=== PATIENT | male | born 1990 | race Caucasian/White ===

== ENCOUNTER 2016-06-21 22:36 | Emergency (ER) | payer BC ==
[2016-06-21] MEDS ORDERED: ONDANSETRON HCL/PF 2 MG/ML VIAL IV ONE (23:04)
--- OUTSIDE RECORDS SUMMARY | 2016-06-21 23:08 | XMS REPORT | Summary of Care ---
:[address] [facility] Address [address] [place] [address] Care Team Providers Name Role Phone Nasra Araiza Primary Care Physician Encounter Date(s): 06/06/16 - 06/06/16 [facility] [address] [place] [address] [facility] Discharge Diagnosis: Hyperglycemia Discharge Diagnosis: Hypothyroidism Discharge Diagnosis: Constipation Discharge Diagnosis: Abnormal weight gain Discharge Diagnosis: HTN - Hypertension Discharge Diagnosis: Nonulcer dyspepsia Discharge Disposition: 01 Discharged to Home or Self Care Attending Physician: Nasra Araiza DO Referring Physician: Nasra Araiza DO Vital Signs Most recent to oldest [Reference Range]: 1 Temperature Tympanic [36.6-38.1 DegC] 36.8 DegC (06/06/16 9:24 AM) Temperature C to F 98.2 (06/06/16 9:24 AM) Peripheral Pulse Rate [60-100 bpm] 95 bpm (06/06/16 9:24 AM) SpO2 96 % (06/06/16 9:24 AM) SpO2 Location Left hand (06/06/16 9:24 AM) Blood Pressure [90-130/60-90 mmHg] 152/80mmHg *HI* (06/06/16 9:24 AM) Mean Arterial Pressure, Cuff 104 mmHg (06/06/16 9:24 AM) Height/Length Measured 183 cm (06/06/16 9:24 AM) Weight Dosing 155.1 kg (06/06/16 9:24 AM) Weight Measured 155.1 kg (06/06/16 9:24 AM) BSA Measured 2.68 m2 (06/06/16 9:24 AM) Body Mass Index Measured 46.31 kg/m2 (06/06/16 9:24 AM) Problem List Condition Effective Dates Status Health Status Informant HTN - Hypertension(Confirmed) Active Hypothyroidism(Confirmed) Active Mood swings(Confirmed) Active Allergies, Adverse Reactions, Alerts No Known Medication Allergies Medications albuterol CFC free 90 mcg/inh inhalation aerosol 2 puff(s), Inhale, q4hr, PRN for wheezing, # 18 gm, 0 Refill(s), Start Date: 05/23 14:48:00 [employer], [facility]acy: [facility] [place] [place] Start Date: 06/08/15 Stop Date: 07/03/15 Status: Completedalbuterol CFC free 90 mcg/inh inhalation aerosol 2 puff(s), Inhale, q4hr, PRN for wheezing, # 18 gm, 0 Refill(s), Start Date: 11:34:07 [employer], Pharmacy: [facility] [place] [place] Start Date: 07/03/15 Status: Orderedbenztropine 1 mg oral tablet 1 tab(s), Oral, BID, 0 Refill(s), Start Date: 07/24/15 11:00:00 CDT Start Date: 07/24/15 Stop Date: 07/24/15 Status: DiscontinuedclonazePAM 0.5 mg oral tablet 1 tab(s), Oral, q8hr, 0 Refill(s), Start Date: 03/24/15 15:32:00 [employer] Start Date: 03/24/15 Stop Date: 03/31/15 Status: CompletedCozaar 100 mg oral tablet 1 tab(s), Oral, Daily, # 90 tab(s), 1 Refill(s), Start Date: 12/04/14 9:15:28 CDT, Pharmacy: [facility] Start Date: 12/04/14 Stop Date: 04/16/15 Status: CompletedCozaar 100 mg oral tablet 1 tab(s), Oral, Daily, # 90 tab(s), 1 Refill(s), Start Date: 04/16/15 15:02:39 [employer], Pharmacy: [facility] [place] [place] Start Date: 04/16/15 Stop Date: 07/22/15 Status: CompletedCozaar 100 mg oral tablet 1 tab(s), Oral, Daily, # 30 tab(s), 0 Refill(s), Start Date: 09/18/14 10:55:00 CDT, Pharmacy: [place], [place] Start Date: 09/18/14 Stop Date: 10/16/14 Status: CompletedCozaar 100 mg oral tablet 1 tab(s), Oral, Daily, # 30 tab(s), 5 Refill(s), Start Date: 10/16/14 16:04:42 CDT, Pharmacy: [place], [place] Start Date: 10/16/14 Stop Date: 12/04/14 Status: CompletedLaMICtal 100 mg oral tablet See Instructions, 0.5 tablet QAM 1 tablet QPM; Dr. León, psychiatrist in [place], # 60 tab(s), 0 Refill(s), Start Date: 06/08/15 14:45:00 [employer], other reason (Rx) Start Date: 06/08/15 Stop Date: 07/24/15 Status: CompletedlamoTRIgine 100 mg oral tablet 1 tab(s), Oral, BID, 0 Refill(s), Start Date: 07/24/15 11:01:00 CDT Start Date: 07/24/15 Stop Date: 07/24/15 Status: DiscontinuedLORazepam 0.5 mg oral tablet 1-2 tab(s), Oral, BID, PRN as needed for anxiety, Dr. León, psychiatrist in [place], 0 Refill(s), Start Date: 07/01/15 9:32:00 [employer] Start Date: 07/01/15 Stop Date: 07/24/15 Status: DiscontinuedLORazepam 1 mg oral tablet 1 tab(s), Oral, BID, PRN anxiety, # 60 tab(s), 2 Refill(s), Start Date: 12:03:00 CDT, Pharmacy: [place], [place] Start Date: 07/24/15 Stop Date: 11/25/15 Status: Completedlosartan 100 mg, Oral, Daily, 0 Refill(s), Start Date: 11/25/15 8:56:00 CDT Start Date: 11/25/15 Stop Date: 11/25/15 Status: Completedlosartan 100 mg oral tablet 1 tab(s), Oral, Daily, # 90 tab(s), 0 Refill(s), Start Date: 01/12/16 9:06:37 CDT, Pharmacy: [facility] [place] [place] Start Date: 01/12/16 Status: Orderedlosartan 100 mg oral tablet 1 tab(s), Oral, Daily, # 90 tab(s), 0 Refill(s), Start Date: 12/07/15 16:54:00 CDT, [facility] [place] [place] Start Date: 12/07/15 Stop Date: 01/12/16 Status: Completedlosartan 100 mg oral tablet 1 tab(s), Oral, Daily, Start Date: 11/25/15 11:12:00 CDT Start Date: 11/25/15 Stop Date: 02/01/16 Status: Completedlosartan-hydrochlorothiazide 100 mg-25 mg oral tablet 1 tab(s), Oral, Daily, # 30 tab(s), 0 Refill(s), Start Date: 06/22/15 16:10:00 [employer], [facility]: [facility] [place] [place] Start Date: 06/22/15 Stop Date: 07/14/15 Status: Discontinuedlosartan-hydrochlorothiazide 100 mg-25 mg oral tablet 1 tab(s), Oral, Daily, # 90 tab(s), 1 Refill(s), Start Date: 07/22/15 10:41:10 CDT, Pharmacy: [facility] [place] [place] Start Date: 07/22/15 Stop Date: 11/25/15 Status: Completedlosartan-hydrochlorothiazide 100 mg-25 mg oral tablet 1 tab(s), Oral, Daily, # 30 tab(s), 0 Refill(s), Start Date: 06/22/15 16:09:00 [employer] Start Date: 06/22/15 Stop Date: 06/22/15 Status: DiscontinuedOLANZapine 5 mg oral tablet 1 tab(s), Oral, Daily, # 30 tab(s), 0 Refill(s), Start Date: 03/20/15 15:08:00 [employer], [place] Start Date: 03/20/15 Stop Date: 03/31/15 Status: CompletedPrevacid 30 mg oral delayed release capsule 1 cap(s), Oral, Daily, # 30 cap(s), 1 Refill(s), Start Date: 09/25/14 10:39:00 CDT, Pharmacy: [place] Start Date: 09/25/14 Stop Date: 12/04/14 Status: CompletedPrevacid 30 mg oral delayed release capsule 1 cap(s), Oral, Daily, # 90 cap(s), 1 Refill(s), Start Date: 12/04/14 9:13:40 CDT, Pharmacy: [facility] Start Date: 12/04/14 Stop Date: 01/09/15 Status: CompletedProtonix 40 mg oral delayed release tablet 1 tab(s), Oral, Daily, # 90 tab(s), 0 Refill(s), Start Date: 01/12/16 8:43:30 CDT, [place] Start Date: 01/12/16 Status: OrderedProtonix 40 mg oral delayed release tablet 1 tab(s), Oral, Daily, # 90 tab(s), 1 Refill(s), Start Date: 05/26/15 13:52:05 [employer], [facility] [place] Start Date: 05/26/15 Stop Date: 01/12/16 Status: CompletedProtonix 40 mg oral delayed release tablet 1 tab(s), Oral, Daily, # 90 tab(s), 3 Refill(s), Start Date: 01/09/15 14:13:00 CDT, Pharmacy: [facility] Start Date: 01/09/15 Stop Date: 05/26/15 Status: CompletedRisperDAL 1 mg oral tablet See Instructions, 2 in am, [address] león, # 1 QS, 0 Refill(s), Start Date: 03/31/15 16:22:00 [employer], other reason (Rx) Start Date: 03/31/15 Stop Date: 07/24/15 Status: Discontinuedsertraline 100 mg oral tablet 1 tab(s), Oral, Daily, Dr León, # 30 tab(s), 0 Refill(s), Start Date: 06/08 14:45:00 [employer], other reason (Rx) Start Date: 06/08/15 Stop Date: 07/24/15 Status: Discontinuedsertraline 100 mg oral tablet 1.5 tab(s), Oral, Daily, # 45 tab(s), 2 Refill(s), Start Date: 07/24/15 12:03: 16 CDT, Pharmacy: [place], [place] Start Date: 07/24/15 Stop Date: 12/03/15 Status: DiscontinuedSuprep Bowel Prep Kit oral liquid 1 kit(s), Oral, ONETIME, # 1 kit(s), 0 Refill(s), Start Date: 12/11/15 15:48:00 CDT, Pharmacy: [place], [place] Start Date: 12/11/15 Stop Date: 02/03/16 Status: CompletedSynthroid 25 mcg (0.025 mg) oral tablet 1 tab(s), Oral, Daily, # 30 tab(s), 2 Refill(s), Start Date: 03/31/15 16:26:00 [employer], Pharmacy: [place], [place] Start Date: 03/31/15 Stop Date: 07/09/15 Status: CompletedSynthroid 50 mcg (0.05 mg) oral tablet 1 tab(s), Oral, Daily, 1 tablet daily; recheck TSH in 3 months., # 90 tab(s), 0 Refill(s), Start Date: 07/09/15 10:06:00 [employer], Pharmacy: [place], [place] Start Date: 07/09/15 Status: OrderedtraMADol 50 mg oral tablet 1 tab(s), Oral, q4hr, PRN for pain, # 10 tab(s), 0 Refill(s), Start Date: 14:16:00 CDT Start Date: 11/25/15 Stop Date: 12/03/15 Status: DiscontinuedtraZODone 50 mg oral tablet 0.5 - 3 tabs, Oral, HS, PRN sleep, # 60 tab(s), 2 Refill(s), Start Date: 12:04:00 CDT, [facility]acy: [facility] [place] [place] Start Date: 07/24/15 Stop Date: 11/25/15 Status: Completedvenlafaxine 37.5 mg oral capsule, extended release 1 cap(s), Oral, Daily, # 30 cap(s), 0 Refill(s), Start Date: 03/31/15 16:25:00 [employer], other reason (Rx) Start Date: 03/31/15 Stop Date: 06/08/15 Status: DiscontinuedZofran 4 mg oral tablet 1 tab(s), Oral, TID, # 9 tab(s), 0 Refill(s), Start Date: 02/03/16 10:07:00 CDT , Pharmacy: [facility] [place] [place] Start Date: 02/03/16 Stop Date: 06/06/16 Status: CompletedZoloft 100 mg oral tablet 1 tab(s), Oral, Daily, # 30 tab(s), 1 Refill(s), Start Date: 02/06/15 15:37:00 CDT, Pharmacy: [facility] [place] [place] Start Date: 02/06/15 Stop Date: 02/11/15 Status: CompletedZoloft 100 mg oral tablet 1 tab(s), Oral, Daily, # 30 tab(s), 1 Refill(s), Start Date: 02/11/15 11:26:36 CDT, Pharmacy: [facility] [place] Start Date: 02/11/15 Stop Date: 03/31/15 Status: CompletedZoloft 50 mg oral tablet 1 tab(s), Oral, Daily, # 30 tab(s), 0 Refill(s), Start Date: 01/09/15 14:13:00 CDT, Pharmacy: [facility] [place] [place] Start Date: 01/09/15 Stop Date: 02/06/15 Status: CompletedZyrTEC 10 mg oral tablet 1 tab(s), Oral, Daily, # 30 tab(s), 2 Refill(s), Start Date: 01/09/15 14:14:00 CDT, Pharmacy: [place], [place] Start Date: 01/09/15 Stop Date: 07/14/15 Status: DiscontinuedZyrTEC 10 mg oral tablet 1 tab(s), Oral, Daily, # 30 tab(s), 5 Refill(s), Start Date: 07/14/15 9:07:11 [employer], Pharmacy: [place] Start Date: 07/14/15 Status: Ordered Results Patient Viewable Results Most recent to oldest [Reference Range]: 1 Sodium Lvl [136-145 mmol/L] 142 mmol/L (06/06/16 10:03 AM) Potassium Lvl [3.5-5.1 mmol/L] 4.3 mmol/L (06/06/16 10:03 AM) Chloride Lvl [98-107 mmol/L] 105 mmol/L (06/06/16 10:03 AM) Bicarbonate Lvl [21-32 mmol/L] 26 mmol/L (06/06/16 10:03 AM) Anion Gap [12-19] 15 (06/06/16 10:03 AM) Glucose Lvl [74-106 mg/dL] 97 mg/dL (06/06/16 10:03 AM) BUN [7-18 mg/dL] 13 mg/dL (06/06/16 10:03 AM) Creatinine Lvl [0.70-1.30 mg/dL] 0.90 mg/dL (06/06/16 10:03 AM) BUN/Creat Ratio 14 *NA* (06/06/16 10:03 AM) eGFR AA [>=60] >60 (06/06/16 10:03 AM) eGFR AME [>=60] >60 (06/06/16 10:03 AM) Calcium Lvl [8.5-10.1 mg/dL] 9.2 mg/dL (06/06/16 10:03 AM) Total Protein [6.4-8.2 g/dL] 7.3 g/dL (06/06/16 10:03 AM) Albumin Lvl [3.4-5.0 g/dL] 3.8 g/dL (06/06/16 10:03 AM) Globulin 4 g/dL *NA* (06/06/16 10:03 AM) A/G Ratio [1.0-2.0] 1.1 (06/06/16 10:03 AM) Bilirubin Total [0.2-1.0 mg/dL] 0.4 mg/dL (06/06/16 10:03 AM) Alkaline Phosphatase [46-116 unit/L] 117 unit/L *HI* (06/06/16 10:03 AM) AST [15-37 unit/L] 14 unit/L *LOW* (06/06/16 10:03 AM) ALT [16-63 unit/L] 34 unit/L (06/06/16 10:03 AM) Glycated Hemoglobin [4.5-6.2 %] 5.5 % (06/06/16 10:03 AM) Estimated Average Glucose [64-120 mg/dL] 97 mg/dL (06/06/16 10:03 AM) Cholesterol Total [0-200 mg/dL] 139 mg/dL (06/06/16 10:03 AM) Triglyceride [0-200 mg/dL] 80 mg/dL (06/06/16 10:03 AM) HDL Cholesterol [40-60 mg/dL] 37 mg/dL *LOW* (06/06/16 10:03 AM) LDL Cholesterol (Direct) [0-130 mg/dL] 86 mg/dL (06/06/16 10:03 AM) Non HDL Cholesterol [0-160 mg/dL] 102 mg/dL (06/06/16 10:03 AM) TSH [0.36-3.74 mIU/L] 1.84 mIU/L (06/06/16 10:03 AM) Immunizations No data available for this section Procedures Procedure Date Related Diagnosis Body Site Esophagogastroduodenoscopy1 02/03/16 Tonsillectomy Uvulectomy 1auto-populated from documented surgical case Social History No data available for this section Assessment and Plan No data available for this section
--- OUTSIDE RECORDS SUMMARY | 2016-06-21 23:09 | XMS REPORT | Summary of Care ---
:1990 Author Organization [facility] Address [address] [place] [id number] Care Team Providers Name Role Phone Nasra Araiza Primary Care Physician Encounter Date(s): 10/15/15 - 10/15/[address] [address] [facility] Discharge Disposition: 01 Discharged to Home or Self Care Referring Physician: Nasra Araiza, DO Vital Signs No data available for this section Problem List Condition Effective Dates Status Health Status Informant HTN - Hypertension(Confirmed) Active Hypothyroidism(Confirmed) Active Mood swings(Confirmed) Active Allergies, Adverse Reactions, Alerts No Known Medication Allergies Medications albuterol CFC free 90 mcg/inh inhalation aerosol 2 puff(s), Inhale, q4hr, PRN for wheezing, # 18 gm, 0 Refill(s), Start Date: 05/23 14:48:00 [employer], Pharmacy: [place], [place] Start Date: 06/08/15 Stop Date: 07/03/15 Status: Completedalbuterol CFC free 90 mcg/inh inhalation aerosol 2 puff(s), Inhale, q4hr, PRN for wheezing, # 18 gm, 0 Refill(s), Start Date: 11:34:07 [employer], Pharmacy: [place], [place] Start Date: 07/03/15 Status: Orderedbenztropine 1 mg oral tablet 1 tab(s), Oral, BID, 0 Refill(s), Start Date: 07/24/15 11:00:00 CDT Start Date: 07/24/15 Stop Date: 07/24/15 Status: DiscontinuedclonazePAM 0.5 mg oral tablet 1 tab(s), Oral, q8hr, 0 Refill(s), Start Date: 03/24/15 15:32:00 [employer] Start Date: 03/24/15 Stop Date: 03/31/15 Status: CompletedCozaar 100 mg oral tablet 1 tab(s), Oral, Daily, # 90 tab(s), 1 Refill(s), Start Date: 12/04/14 9:15:28 CDT, Pharmacy: [facility] Start Date: 12/04/14 Stop Date: 04/16/15 Status: CompletedCozaar 100 mg oral tablet 1 tab(s), Oral, Daily, # 90 tab(s), 1 Refill(s), Start Date: 04/16/15 15:02:39 [employer], Pharmacy: [facility] [place] [place] Start Date: 04/16/15 Stop Date: 07/22/15 Status: CompletedCozaar 100 mg oral tablet 1 tab(s), Oral, Daily, # 30 tab(s), 0 Refill(s), Start Date: 09/18/14 10:55:00 CDT, Pharmacy: [place], [place] Start Date: 09/18/14 Stop Date: 10/16/14 Status: CompletedCozaar 100 mg oral tablet 1 tab(s), Oral, Daily, # 30 tab(s), 5 Refill(s), Start Date: 10/16/14 16:04:42 CDT, [facility] [place] Start Date: 10/16/14 Stop Date: 12/04/14 Status: CompletedLaMICtal 100 mg oral tablet See Instructions, 0.5 tablet QAM 1 tablet QPM; Dr. León, psychiatrist in [place], # 60 tab(s), 0 Refill(s), Start Date: 06/08/15 14:45:00 [employer], other reason (Rx) Special Instructions: 0.5 tablet QAM 1 tablet QPM; Dr. León, psychiatrist in [place] Start Date: 06/08/15 Stop Date: 07/24/15 Status: CompletedlamoTRIgine 100 mg oral tablet 1 tab(s), Oral, BID, 0 Refill(s), Start Date: 07/24/15 11:01:00 CDT Start Date: 07/24/15 Stop Date: 07/24/15 Status: DiscontinuedLORazepam 0.5 mg oral tablet 1-2 tab(s), Oral, BID, PRN as needed for anxiety, Dr. León, psychiatrist in [place], 0 Refill(s), Start Date: 07/01/15 9:32:00 [employer] Special Instructions: Dr. León, psychiatrist in [place] Start Date: 07/01/15 Stop Date: 07/24/15 Status: DiscontinuedLORazepam 1 mg oral tablet 1 tab(s), Oral, BID, PRN anxiety, # 60 tab(s), 2 Refill(s), Start Date: 12:03:00 CDT, Pharmacy: [facility] [place] [place] Start Date: 07/24/15 Status: Orderedlosartan-hydrochlorothiazide 100 mg-25 mg oral tablet 1 tab(s), Oral, Daily, # 30 tab(s), 0 Refill(s), Start Date: 06/22/15 16:10:00 [employer], Pharmacy: [facility] [place] Start Date: 06/22/15 Stop Date: 07/14/15 Status: Discontinuedlosartan-hydrochlorothiazide 100 mg-25 mg oral tablet 1 tab(s), Oral, Daily, # 90 tab(s), 1 Refill(s), Start Date: 07/22/15 10:41:10 CDT, Pharmacy: [facility] [place] [place] Start Date: 07/22/15 Status: Orderedlosartan-hydrochlorothiazide 100 mg-25 mg oral tablet 1 tab(s), Oral, Daily, # 30 tab(s), 0 Refill(s), Start Date: 06/22/15 16:09:00 [employer] Start Date: 06/22/15 Stop Date: 06/22/15 Status: DiscontinuedOLANZapine 5 mg oral tablet 1 tab(s), Oral, Daily, # 30 tab(s), 0 Refill(s), Start Date: 03/20/15 15:08:00 [employer], [facility] [place] Start Date: 03/20/15 Stop Date: 03/31/15 Status: CompletedPrevacid 30 mg oral delayed release capsule 1 cap(s), Oral, Daily, # 30 cap(s), 1 Refill(s), Start Date: 09/25/14 10:39:00 CDT, Pharmacy: [place], [place] Start Date: 09/25/14 Stop Date: 12/04/14 Status: CompletedPrevacid 30 mg oral delayed release capsule 1 cap(s), Oral, Daily, # 90 cap(s), 1 Refill(s), Start Date: 12/04/14 9:13:40 CDT, Pharmacy: [facility] Start Date: 12/04/14 Stop Date: 01/09/15 Status: CompletedProtonix 40 mg oral delayed release tablet 1 tab(s), Oral, Daily, # 90 tab(s), 1 Refill(s), Start Date: 05/26/15 13:52:05 [employer], Pharmacy[place] Start Date: 05/26/15 Status: OrderedProtonix 40 mg oral delayed release tablet 1 tab(s), Oral, Daily, # 90 tab(s), 3 Refill(s), Start Date: 01/09/15 14:13:00 CDT, Pharmacy: [facility] Start Date: 01/09/15 Stop Date: 05/26/15 Status: CompletedRisperDAL 1 mg oral tablet See Instructions, 2 in am, [address] león, # 1 QS, 0 Refill(s), Start Date: 03/31/15 16:22:00 [employer], other reason (Rx) Special Instructions: 2 in am, [address] león Start Date: 03/31/15 Stop Date: 07/24/15 Status: Discontinuedsertraline 100 mg oral tablet 1 tab(s), Oral, Daily, Dr León, # 30 tab(s), 0 Refill(s), Start Date: 06/08 14:45:00 [employer], other reason (Rx) Special Instructions: Dr León Start Date: 06/08/15 Stop Date: 07/24/15 Status: Discontinuedsertraline 100 mg oral tablet 1.5 tab(s), Oral, Daily, # 45 tab(s), 2 Refill(s), Start Date: 07/24/15 12:03: 16 CDT, [facility] [place] Start Date: 07/24/15 Status: OrderedSynthroid 25 mcg (0.025 mg) oral tablet 1 tab(s), Oral, Daily, # 30 tab(s), 2 Refill(s), Start Date: 03/31/15 16:26:00 [employer], Pharmacy: [place], [place] Start Date: 03/31/15 Stop Date: 07/09/15 Status: CompletedSynthroid 50 mcg (0.05 mg) oral tablet 1 tab(s), Oral, Daily, 1 tablet daily; recheck TSH in 3 months., # 90 tab(s), 0 Refill(s), Start Date: 07/09/15 10:06:00 [employer], Pharmacy: [place], [place] Special Instructions: 1 tablet daily; recheck TSH in 3 months. Start Date: 07/09/15 Status: OrderedtraZODone 50 mg oral tablet 0.5 - 3 tabs, Oral, HS, PRN sleep, # 60 tab(s), 2 Refill(s), Start Date: 12:04:00 CDT, Pharmacy: [place], [place] Start Date: 07/24/15 Status: Orderedvenlafaxine 37.5 mg oral capsule, extended release 1 cap(s), Oral, Daily, # 30 cap(s), 0 Refill(s), Start Date: 03/31/15 16:25:00 [employer], other reason (Rx) Start Date: 03/31/15 Stop Date: 06/08/15 Status: DiscontinuedZoloft 100 mg oral tablet 1 tab(s), Oral, Daily, # 30 tab(s), 1 Refill(s), Start Date: 02/06/15 15:37:00 CDT, [facility] [place] Start Date: 02/06/15 Stop Date: 02/11/15 Status: CompletedZoloft 100 mg oral tablet 1 tab(s), Oral, Daily, # 30 tab(s), 1 Refill(s), Start Date: 02/11/15 11:26:36 CDT, Pharmacy: [facility] [place] [place] Start Date: 02/11/15 Stop Date: 03/31/15 Status: CompletedZoloft 50 mg oral tablet 1 tab(s), Oral, Daily, # 30 tab(s), 0 Refill(s), Start Date: 01/09/15 14:13:00 CDT, Pharmacy: [facility] [place] Start Date: 01/09/15 Stop Date: 02/06/15 Status: CompletedZyrTEC 10 mg oral tablet 1 tab(s), Oral, Daily, # 30 tab(s), 2 Refill(s), Start Date: 01/09/15 14:14:00 CDT, Pharmacy: [facility] [place] Start Date: 01/09/15 Stop Date: 07/14/15 Status: DiscontinuedZyrTEC 10 mg oral tablet 1 tab(s), Oral, Daily, # 30 tab(s), 5 Refill(s), Start Date: 07/14/15 9:07:11 [employer], Pharmacy: [facility] [place] [place] Start Date: 07/14/15 Status: Ordered Results No data available for this section Immunizations No data available for this section Procedures Procedure Date Related Diagnosis Body Site Tonsillectomy Uvulectomy Social History No data available for this section Assessment and Plan No data available for this section
[2016-06-21] MEDS ORDERED: ONDANSETRON HCL/PF 2 MG/ML VIAL ONE (23:14)
--- NOTE | 2016-06-21 23:20 | ERNOTE ---
Medical Problem HPI - General Chief Complaint: General Assessment Time Seen by Provider: 06/21/16 22:52 Source: patient Exam Limitations: no limitations - Immun/Allergies/Home Medications Immunizations: IMMUNIZATION HX Immunizations Up to Date Yes History of Influenza Vaccine No Hx Pneumococcal Vaccination No Allergies/Adverse Reactions: Allergies No Known Allergies Allergy (Verified 04/30/15 07:44) Home Medications: HOME MEDICATIONS Losartan Potassium [Cozaar] 100 mg PO DAILY 01/05/15 [Last Taken 01/05/15 08:00 100mg] Levothyroxine Sodium [Synthroid] 25 mcg PO DAILY 04/23/15 [Last Taken Unknown] Pantoprazole Sodium [Protonix] 40 mg PO DAILY 04/23/15 [Last Taken Unknown] Cetirizine HCl [Zyrtec] 10 mg PO DAILY PRN 04/30/15 [Last Taken Unknown] Ondansetron HCl [Zofran] 1 - 2 mg PO Q8H PRN #10 tab 06/22/16 [Last Taken Unknown] - History of Present History Narrative: Pt states he had onset of nausea and vomiting 2 days ago. tonight he had red blood in the stool this concerned him Timing: constant Severity: moderate Modifying Factors - (Worsens): Present: eating Review of Systems - Review of Systems Constitutional: Present: recent illness, fatigue. Absent: fever, chills EYE: Present: no symptoms reported ENT: Present: no symptoms reported Respiratory: Present: no symptoms reported Cardiology: Present: no symptoms reported Gastrointestinal/Abdominal: Present: See HPI, nausea, vomiting, diarrhea, abdominal pain - "soreness" Genitourinary: Present: decreased urinary output Musculoskeletal: Present: muscle pain - from vomiting Skin: Present: no symptoms reported Neurological: Present: no symptoms reported Endocrine: Present: no symptoms reported Hematologic/Lymphatic: Present: no symptoms reported - Patient's Past Medical History Patient History - Medical: Hypothyroidism, Seizures, Other Patient History - Cardiac/Respiratory: Hypertension Patient History - Cancer: No Hx of Cancer Patient History - Surgical Procedures: T & A, Other Patient History - Other: None - Social History Living Situations: spouse Abuse History: No History of abuse Psych History: Hx of Anxiety Smoking Status: Current every day smoker Do you dip or chew tobacco: No Alcohol Use: occasionally Drug Use: none - Immunizations Immunizations Up to Date: Yes Hx Pneumococcal Vaccination: No History of Influenza Vaccine: No Physical Exam - Physical Exam General Appearance: Present: wd/wn, alert, no apparent distress Eye Exam: Normal inspection: bilateral, PERRL: bilateral Respiratory: Present: no respiratory distress, normal breath sounds, no accessory muscle use, chest nontender, lungs clear Cardiovascular/Chest: Present: regular rate, rhythm, no murmur, normal peripheral pulses Gastrointestinal/Abdominal: Present: tenderness - diffusely, abnormal bowel sounds - slow but high pitched. Absent: guarding, rebound Extremity Exam: Present: normal inspection, non-tender, normal range of motion Neurological Exam: Present: alert, oriented, normal mood/affect, no motor/ sensory deficits Skin Exam: Present: normal color, warm/dry Lymphatic Exam: Present: no adenopathy ED Progress - Results and Orders Patient's Lab Results:: I have reviewed the patient's lab results. Results and Orders: Laboratory Tests 06/21/16 06/21/16 23:16 23:16 WBC 10.1 Hgb 14.6 Hct 43.7 Plt Count 348 Sodium 140 Potassium 3.6 Chloride 103 Carbon Dioxide 27.2 Anion Gap 13.4 BUN 13 Creatinine 1.00 Est GFR (Non-Af Amer) 98 Random Glucose 106 Calcium 9.1 Total Bilirubin 0.4 AST 22 ALT 49 Alkaline Phosphatase 99 Total Protein 7.6 Albumin 3.7 Amylase 21 L Lipase 82 - Vital Signs Vital Signs: Vital Signs 06/21/16 22:40 Temperature 36.0 C L Pulse Rate 90 Respiratory 14 Rate Blood Pressure 154/85 O2 Sat by Pulse 98 Oximetry - X-Ray X-Ray #1 X-Ray: abdomen Interpretation: Reviewed by me X-ray Comments: No signs of obstruction, - Progress/Reassessment Chief Complaint: General Assessment Departure - Departure Clinical Impression: Gastroenteritis Disposition: Home self-care Condition: Fair Instructions: Viral Gastroenteritis, Adult, [id number] Prescriptions: Ondansetron HCl [Zofran] 1 - 2 mg PO Q8H PRN #10 tab PRN Reason: Nausea
[2016-06-21 23:29] LABS: Hematocrit 43.7 % (42.0-52.0); Hemoglobin 14.6 gm/dL (13.5-18.0); Mean Cell Volume 82.9 fl (78-100); Mean Corpuscular Hemoglobin 27.7 pg (27-31); Mean Corpuscular Hgb Conc 33.4 g/dl (32-36); Mean Platelet Volume 9.7 fl (6.0-9.5); Neutrophil # 6.3 K/mm3 (1.3-6.0); Neutrophil % 62.2 % (42-75.0); Platelet Count 348 K/mm3 (150-450); Red Blood Count 5.27 M/mm3 (4.7-6.0); Red Cell Distribution Width 13.8 % (11.5-14.0); White Blood Count 10.1 K/mm3 (4.0-10.5)
[2016-06-21 23:37] LABS: Albumin * 3.7 gm/dl (3.4-5.0); Anion Gap 13.4 mmol/L (6.8-13.8); Bilirubin, Total 0.4 mg/dL (0.0-1.1); Calcium * 9.1 mg/dL (7.9-10.9); Carbon Dioxide 27.2 mmol/L (24-32.6); Potassium 3.6 mmol/L (3.4-4.6); Total Protein 7.6 gm/dL (6.2-8.2)
[2016-06-22] MEDS ORDERED: ONDANSETRON 4 MG TAB.RAPDIS PO ONE (00:59)
[2016-06-22] MEDS ORDERED: ONDANSETRON 4 MG TAB.RAPDIS ONE (01:05)
[2016-06-22 01:14] VITALS: BP 139/71
== END 2016-06-22 01:13 | disposition home or self-care (01) ==
LOC: ER 22:36
DX: A08.4 Viral intestinal infection, unspecified (principal); Z72.0 Tobacco use; I10 Essential (primary) hypertension; E03.9 Hypothyroidism, unspecified